=== PATIENT | male | born 1955 | race Caucasian/White ===

== ENCOUNTER 2018-02-05 16:30 | Emergency (ER) | payer SELFPAY ==
[2018-02-05 16:31] VITALS: BP 155/102; PULSE 61; RESP 16; TEMP 36.6; O2SAT 98; BMI 32.5
--- NOTE | 2018-02-05 16:52 | US_ITS ---
STUDY: ABDOMINAL ULTRASOUND - RIGHT UPPER QUADRANT REASON FOR VISIT: Male, 62 years old. Right upper quadrant pain TECHNIQUE: Ultrasound evaluation of the right upper quadrant was performed with real-time and static luis-scale imaging. TECHNICAL QUALITY: Adequate. COMPARISON: None. FINDINGS: Liver: The liver measures 18.3 cm. There is increased echogenicity consistent with fatty infiltration. The bile ducts are within normal limits. There is hepatic color flow. The direction of portal flow is hepatopetal. There is no demonstrated mass lesion. Gallbladder: Normal distended gallbladder. The gallbladder wall measures 2 mm. There is a positive sonographic Blankenship's sign. There is no pericholecystic fluid. There are no gallstones. Common Bile Duct (C.B.D.): The common bile duct measures 4.5 mm. Pancreas: There is nonvisualization of the pancreas. Right Kidney: Normal size of the right kidney. The right kidney measures 11.0 x 4.9 x 5.1 cm. Normal renal cortex. The right cortex measures 1.3 cm. There is no demonstrated renal mass or cyst. There is no right hydronephrosis. US/Gallbladder IMPRESSION: Fatty liver. Nondistended gallbladder without wall thickening, sludge or stones. Nondistended common bile duct. There is tenderness over the area of the gallbladder. Nonvisualized pancreas. Normal right kidney. Electronically Signed: Cinda Saavedra MD at 18:43 EDT , Service support ,
--- NOTE | 2018-02-05 16:52 | ED.VISSUMM ---
- ER Visit Summary Date of Service: 02/05/18 Chief Complaint: Abdominal pain History of Present Illness: The patient is a 62 M presenting with right upper quadrant abdominal pain ?10 days. Patient states the pain has been intermittent. He states it is occasionally improved with food. It is worsened with change in position. He had subjective fever. He has had nausea with no vomiting. He has had intermittent diarrhea and constipation. He went to urgent care 4 days ago and was given a prescription for Cipro. He states he was told he may have an infection of his gallbladder. He does not have a primary care physician. Physical Examination: Vitals are stable. Patient is afebrile. Alert no acute distress. HEENT exam is unremarkable. Neck is supple. Lungs are clear and equal bilaterally. Heart is regular rate and rhythm. Abdomen is soft right upper quadrant tenderness, no rebound Extremities are unremarkable. Skin is warm and dry. No focal neurologic deficit. Remainder of exam is unremarkable. Emergency Department Course and Treatment: Patient is given IV fluids, morphine, Zofran. CBC, chemistries unremarkable. Liver lipase are normal. Patient is feeling improved following medications. Ultrasound shows nondistended gallbladder with no stones. Patient states his pain has returned. He is given a GI cocktail with some improvement. CT abdomen pelvis shows no acute process. He is given a prescription for Pepcid and advised follow-up with Dr. Hinojosa cloud solutions architect for GI. Advised to return to the ED for worsening complaints. Disposition: Discharge home Impression: Abdominal pain This note was generated with [employer] dictation software. It may contain incorrect words, spelling, and punctuation that were not noted in review of the chart prior to signing ED Disposition - Plan for ED Patient: Chief Complaint: Abd Pain Referrals: NOT,DEFINED [NON-STAFF] -
[2018-02-05] MEDS: Ondansetron 4 MG/2 ML Vial IV (17:02)
[2018-02-05 17:13] LABS: Absolute Lymphocyte Count 1.44 X10^3/ul (0.83-4.51); Basophil# 0.02 X10^3/uL; Basophil% 0.3 % (0-1); Eosinophil# 0.27 X10^3/uL; Eosinophils% 3.6 % (0-5); Hematocrit 49.7 % (40-54); Hemoglobin 16.7 g/dl (13.0-16.5); Lymphocyte # 1.44 X10^3/ul (4.0); Lymphocyte % 19.3 % (19-41); Mean Corp Hgb Conc 33.6 g/gl (32-36); Mean Corpuscular Hgb 28.8 pg (27.0-32.0); Mean Corpuscular Volume 85.7 fL (80-94); Mean Platelet Vol. 9.6 fl (6.2-12.0); Monocyte# 0.73 X10^3/uL; Monocyte% 9.8 % (0-10); Neutrophil % 66.7 % (47-70); Platelet Count 195 K/mm3 (150-450); RBC Distribution Width CV 15.2 % (11.6-14.6); RBC Distribution Width SD 47.3 fl (35.1-43.9); White Blood Count 7.5 K/mm3 (4.4-11.0)
[2018-02-05 17:14] LABS: POSITIVE COUNT NO; POSITIVE DIFFERENTIAL NO; POSITIVE MORPHOLOGY NO
[2018-02-05 17:25] LABS: AST(SGOT) 31 U/L (15-37); Alanine Aminotransfer ALT/SGPT 41 U/L (16-61); Albumin, Serum 3.5 g/dL (3.2-5.0); Alkaline Phosphatase 54 U/L (45-117); Anion Gap 7 (5-15); BUN 23 mg/dL (7-18); BUN/Creat Ratio 20.5 RATIO (10-20); Bilirubin, Direct 0.12 mg/dL (0.00-0.30); Calcium,Total 8.7 mg/dL (8.5-10.1); Chloride 106 mmol/L (98-107); Creatinine, Serum 1.12 mg/dL (0.70-1.30); EST Glomerular Filtration Rate 70 mL/min (>60); Est Glom Filt Rate - Afr Amer 85 mL/min (>60); Estimated Creatinine Clearance 55.79 ml/min; Globulin 3.9 g/dL (2.2-4.2); Glucose 87 mg/dL (74-106); Lipase 299 U/L (73-393); Potassium 3.9 mmol/L (3.5-5.1); Protein, Total 7.4 g/dL (6.4-8.2); Sodium Level 140 mmol/L (136-145)
--- NOTE | 2018-02-05 18:55 | CT_ITS ---
STUDY: CT ABDOMEN AND PELVIS WITH CONTRAST REASON FOR EXAM: Male, 62 years old. Right upper quadrant pain and nausea for one week. RADIATION DOSAGE (If Supplied By Facility): CTDIvol = ( 25.19 ) mGy, DLP = ( 1054.89 ) mGycm TECHNIQUE: Transaxial images were obtained from the dome of the diaphragm to the symphysis pubis without oral contrast. 100 ml of Isovue 370 contrast was administered. Sagittal and coronal images were reconstructed. Individualized dose optimization techniques were used for this CT. COMPARISON: Right upper quadrant ultrasound of February 05, 2018 FINDINGS: The visualized lung bases are unremarkable. The visualized portions of the heart are within normal limits. Normal liver. Normal gallbladder and extrahepatic biliary system. Normal spleen. Normal pancreas. Normal bilateral adrenal glands. 2 mm nonobstructing stone in the lower pole of the right kidney without hydronephrosis or ureteral stones. Normal left kidney. Normal visualized stomach. Normal small intestine. Normal colon. There is non-visualization of the appendix. Mild plaque and tortuosity of the thoracic aorta and iliac vessels. Normal inferior vena cava. Normal retroperitoneum. Normal urinary bladder. Mild generalized prostate enlargement. Minimal fatty umbilical hernia. Bilateral fatty inguinal hernias. There are diffuse degenerative changes of the visualized lumbar spine. CT/Abdomen/Pelvis W IV Cont ONLY IMPRESSION: 2 mm nonobstructing stone in the lower pole of the right kidney without hydronephrosis, ureteral or bladder stones. Normal left kidney without hydronephrosis or stones. Unremarkable liver, gallbladder, common bile duct, pancreas and spleen. No acute bowel related findings. Negative for evidence of bowel obstruction, bowel perforation or inflammatory bowel changes. The appendix is not identified. Mild prostate enlargement. Minimal fatty umbilical hernia. Moderate bilateral fatty inguinal hernias. Electronically Signed: Cinda Saavedra MD at 20:03 EDT , Service support ,
[2018-02-05 19:08] VITALS: PULSE 58; RESP 18
--- NOTE | 2018-02-05 21:00 | ED.DEP ---
ED Disposition - Plan for ED Patient: Chief Complaint: Abd Pain Instructions: ED Abdominal Pain Unkn Cause Prescriptions: Famotidine [Pepcid] 20 mg PO BID #28 tablet Referrals: NOT,DEFINED [NON-STAFF] - Mervin Hayward DO [STAFF PHYSICIAN] - Tay Hinojosa MD [STAFF PHYSICIAN] -
[2018-02-05 21:09] VITALS: BP 150/89; PULSE 80; RESP 14; O2SAT 99
== END 2018-02-05 21:10 | disposition home or self-care (01) ==
LOC: ED 17:43
PROVIDERS: Emergency Provider Emergency Medicine
DX: R10.11 Right upper quadrant pain (principal); R11.0 Nausea; I10 Essential (primary) hypertension
CPT/HCPCS: 74177; 76705; 80048; 80076; 83690; 85025; 96361; 96374; 96375; 99283; J7030; J7040; Q9967; A4216; J2405

== ENCOUNTER 2018-02-11 20:30 | Observation (INO) | payer SELFPAY ==
[2018-02-11 20:31] VITALS: BP 133/102; PULSE 84; RESP 16; TEMP 37.3; O2SAT 98; BMI 33.5
--- NOTE | 2018-02-11 21:13 | US_ITS ---
STUDY: VENOUS DOPPLER ULTRASOUND - BILATERAL LOWER EXTREMITIES REASON FOR EXAM: Male, 62 years old. Pain and swelling TECHNIQUE: Ultrasound evaluation of the deep vein system to include clifford-scale imaging and compression was performed. Clifford-scale imaging and Doppler sonographic evaluation, including duplex spectral analysis and qualitative color flow sonography, was performed. COMPARISON: None. FINDINGS: RIGHT LEG Common Femoral Vein: Normal compression, spontaneity and augmentation. Normal color Doppler. Common Femoral Vein/Greater Saphenous Junction: Normal compression, spontaneity and augmentation. Normal color Doppler. Deep Femoral Vein: Normal compression, spontaneity and augmentation. Normal color Doppler. Superficial Femoral Proximal: Occlusive thrombus Superficial Femoral Middle: Occlusive thrombus Superficial Femoral Distal: Occlusion thrombus Popliteal Vein: Occlusive thrombus Posterior Tibial Vein: Occlusive thrombus Peroneal Vein: Occlusive thrombus The visualized soft tissues are unremarkable. LEFT LEG Common Femoral Vein: Normal compression, spontaneity and augmentation. Normal color Doppler. Common Femoral Vein/Greater Saphenous Junction: Normal compression, spontaneity and augmentation. Normal color Doppler. Deep Femoral Vein: Normal compression, spontaneity and augmentation. Normal color Doppler. Superficial Femoral Proximal: Normal compression, spontaneity and augmentation. Normal color Doppler. Superficial Femoral Middle: Normal compression, spontaneity and augmentation. Normal color Doppler. Superficial Femoral Distal: Normal compression, spontaneity and augmentation. Normal color Doppler. Popliteal Vein: Normal compression, spontaneity and augmentation. Normal color Doppler. Posterior Tibial Vein: Normal compression, spontaneity and augmentation. Normal color Doppler. Peroneal Vein: Normal compression, spontaneity and augmentation. Normal color Doppler. The visualized soft tissues are unremarkable. US/Venous Duplex Imag/Harris Extrem IMPRESSION: Occlusive thrombus in the right femoral vein, popliteal vein, posterior tibial vein and peroneal vein. No evidence of deep venous thrombosis in the left lower extremity. N.B. : The above information has been verbally conveyed by Nilo Laboy to Dr. Shad Schmidt, Referring Physician, on 02/11/2018 22:05:39 (ET). Electronically Signed: Nilo Laboy, at 22:04 EDT Tel , Service support , N.B. : The above information has been verbally conveyed by Nilo Laboy to Dr. Shad Schmidt, Referring Physician, on 02/11/2018 22:05:39 (ET).
[2018-02-11 21:22] LABS: Absolute Lymphocyte Count 1.17 X10^3/ul (0.83-4.51); Absolute Neutrophil Count 4.4 X10^3/uL (2.0-7.7); Basophil# 0.02 X10^3/uL; Basophil% 0.3 % (0-1); Eosinophil# 0.33 X10^3/uL; Eosinophils% 4.8 % (0-5); Hematocrit 49.2 % (40-54); Hemoglobin 16.7 g/dl (13.0-16.5); Lymphocyte # 1.17 X10^3/ul (4.0); Lymphocyte % 16.9 % (19-41); Mean Corp Hgb Conc 33.9 g/gl (32-36); Mean Corpuscular Hgb 28.7 pg (27.0-32.0); Mean Corpuscular Volume 84.7 fL (80-94); Mean Platelet Vol. 9.9 fl (6.2-12.0); Monocyte# 0.99 X10^3/uL; Monocyte% 14.3 % (0-10); Neutrophil # 4.41 X10^3/uL (2.7-7.7); Neutrophil % 63.6 % (47-70); Platelet Count 169 K/mm3 (150-450); Red Blood Count 5.81 M/mm3 (4.6-6.2); White Blood Count 6.9 K/mm3 (4.4-11.0)
[2018-02-11 21:23] LABS: POSITIVE COUNT NO; POSITIVE DIFFERENTIAL NO; POSITIVE MORPHOLOGY NO
[2018-02-11 21:28] LABS: Prothrombin Time (Protime)PT. 13.6 SECONDS (11.7-14.9)
[2018-02-11 21:35] LABS: Anion Gap 7 (5-15); BUN 27 mg/dL (7-18); Calcium,Total 8.4 mg/dL (8.5-10.1); Chloride 103 mmol/L (98-107); Creatinine, Serum 1.23 mg/dL (0.70-1.30); EST Glomerular Filtration Rate 63 mL/min (>60); Est Glom Filt Rate - Afr Amer 76 mL/min (>60); Glucose 105 mg/dL (74-106); Potassium 3.6 mmol/L (3.5-5.1); Sodium Level 137 mmol/L (136-145)
--- NOTE | 2018-02-11 21:53 | CT_ITS ---
STUDY: CTA CHEST REASON FOR EXAM: Male, 62 years old. Chest pain and DVT RADIATION DOSAGE (If Supplied By Facility): CTDIvol = ( 17.94 ) mGy, DLP = ( 659.75 ) mGycm TECHNIQUE: The examination was performed with the intravenous administration of 100 ml of Isovue 370 contrast material. Post-processing of the angiographic images was performed, with multiplanar reformation and 3D reconstruction. Individualized dose optimization techniques were used for this CT. COMPARISON: None. FINDINGS: There is intraluminal thrombus seen within the distal right pulmonary artery extending into the descending interlobar branch and segmental branches to the right lower lobe. There is also intraluminal clot seen within the proximal branches to the right upper lobe. . There is also clot seen within the subsegmental vessels to the left lower lobe There are atherosclerotic changes of the aorta and aneurysmal dilatation of the ascending aorta measuring approximately 4.8 x 4.5 cm. There is no demonstrated aortic dissection. Heart is normal size although there is mild coronary artery calcification. Normal mediastinum. Normal hilar regions. Normal visualized trachea and bronchi. The lungs are well expanded. There is mild interstitial and emphysematous change. There is no focal infiltrate or pulmonary nodule. Normal pleura. Normal chest wall structures. There appear to be sclerotic changes within the cervical spine of uncertain etiology.. Blastic metastasis cannot be excluded. Recommend clinical correlation and follow-up Dorsal spine demonstrates moderate spondylosis. Small hiatal hernia is demonstrated. Normal visualized upper abdomen. CT/CTA Chest W/WO Contrast IMPRESSION: Pulmonary emboli to the right upper and bilateral lower lobes.. Ascending aortic aneurysm measuring approximately 4.8 x 4.5 cm without evidence for dissection Other findings as above N.B. : The above information has been verbally conveyed by Bharat Metzger MD to Shad Schmidt , Referring Physician, on 02/11/2018 22:52:57 (ET). Electronically Signed: Bharat Metzger MD at 22:50 EDT , Service support , N.B. : The above information has been verbally conveyed by Bharat Metzger MD to Shad Schmidt , Referring Physician, on 02/11/2018 22:52:57 (ET).
[2018-02-11] MEDS: HEPARIN/D5w 25,000 UNITS 25,000 UNITS/250 ML IV.SOLN. 10 UNITS IV (22:54)
--- NOTE | 2018-02-11 23:25 | ED.VISSUMM ---
- ER Visit Summary Date of Service: 02/11/18 Chief Complaint: Right leg pain History of Present Illness: The patient is a 62 M presenting for evaluation secondary to right leg pain. Patient states that over the course last 5 days he has noticed pain and swelling in his right leg. Patient states it started in his calf, now is associated with some redness of the calf and goes all the way up into his thigh. Worse with palpation and movement no injury no fevers. Patient denies any chest pain or shortness of breath but does state that he has some right upper quadrant abdominal pain associated with this. Patient states that about a week ago he was in the emergency department was evaluated for this with lab work and an ultrasound that was found to be negative and he was discharged. Patient denies any hemoptysis. Denies any recent travel surgery or history of cancer. Denies any history DVT or PE. Physical Examination: Vital signs within normal limits. Well-nourished male no acute distress. Heart regular rate and rhythm no murmurs, normal S1-S2. Lungs sounds clear. Abdomen tender in the right upper quadrant negative Blankenship sign no guarding or rebound. Lower extremity exam shows tenderness to palpation and erythema of the lower leg up to the level of the knee. There are some scattered petechia over the patient's calf, 2+ DP and PT pulses that are bilaterally symmetric. Redness does not extend up above the knee, compartments are soft throughout with normal range of motion. Patient is able to weight-bear easily. Test Results: CBC chemistry coags found to be unremarkable. Ultrasound shows extensive DVT of the right leg. CT angiogram of the chest shows bilateral PEs. Emergency Department Course and Treatment: Patient presented for evaluation secondary to leg pain. Patient was recently emergency department and had reproducible upper quadrant pain and had a negative gallbladder workup. Patient's workup ended up showing that he had extensive DVT as well as PE, his pain likely is secondary to his pulmonary emboli. Given the extensive nature of the patient's clot burden I believe he requires admission. Patient will be admitted under the hospitalist. Disposition: Admission Impression: 1. Extensive right-sided DVT 2. Bilateral pulmonary emboli This note was generated with [employer] software. It may contain incorrect words, spelling, and punctuation that were not noted in review of the chart prior to signing ED Disposition - Plan for ED Patient: Chief Complaint: Lower Extremity Injury Referrals: Care Physician,No Primary [Primary Care Provider] -
--- NOTE | 2018-02-11 23:30 | ED.DCSUM_ITS ---
- ER Visit Summary Date of Service: 02/11/18 Chief Complaint: Right leg pain History of Present Illness: The patient is a 62 M presenting for evaluation secondary to right leg pain. Patient states that over the course last 5 days he has noticed pain and swelling in his right leg. Patient states it started in his calf, now is associated with some redness of the calf and goes all the way up into his thigh. Worse with palpation and movement no injury no fevers. Patient denies any chest pain or shortness of breath but does state that he has some right upper quadrant abdominal pain associated with this. Patient states that about a week ago he was in the emergency department was evaluated for this with lab work and an ultrasound that was found to be negative and he was discharged. Patient denies any hemoptysis. Denies any recent travel surgery or history of cancer. Denies any history DVT or PE. Physical Examination: Vital signs within normal limits. Well-nourished male no acute distress. Heart regular rate and rhythm no murmurs, normal S1-S2. Lungs sounds clear. Abdomen tender in the right upper quadrant negative Blankenship sign no guarding or rebound. Lower extremity exam shows tenderness to palpation and erythema of the lower leg up to the level of the knee. There are some scattered petechia over the patient's calf, 2+ DP and PT pulses that are bilaterally symmetric. Redness does not extend up above the knee, compartments are soft throughout with normal range of motion. Patient is able to weight- bear easily. Test Results: CBC chemistry coags found to be unremarkable. Ultrasound shows extensive DVT of the right leg. CT angiogram of the chest shows bilateral PEs. Emergency Department Course and Treatment: Patient presented for evaluation secondary to leg pain. Patient was recently emergency department and had reproducible upper quadrant pain and had a negative gallbladder workup. Patient 's workup ended up showing that he had extensive DVT as well as PE, his pain likely is secondary to his pulmonary emboli. Given the extensive nature of the patient's clot burden I believe he requires admission. Patient will be admitted under the hospitalist. Disposition: Admission Impression: 1. Extensive right-sided DVT 2. Bilateral pulmonary emboli This note was generated with [employer] software. It may contain incorrect words, spelling, and punctuation that were not noted in review of the chart prior to signing ED Disposition - Plan for ED Patient: Chief Complaint: Lower Extremity Injury Referrals: Care Physician,No Primary [Primary Care Provider] -
[2018-02-11 23:34] VITALS: BP 130/91; PULSE 91; RESP 18; O2SAT 94
[2018-02-11 23:36] VITALS: BP 130/91; PULSE 91; RESP 18; O2SAT 94
[2018-02-11] MEDS: Rivaroxaban 20 MG Tablet PO (23:56)
[2018-02-12] VITALS (9 sets, daily range): BP systolic 114–118; BP diastolic 78–85; PULSE 61–70; RESP 16–18; TEMP 36.9–37; O2SAT 94–96; BMI 33.5; BMI 34.4
--- NOTE | 2018-02-12 00:06 | PCM.HP.STD ---
Problem List (1) Pulmonary embolism Status: Acute Qualifiers: Pulmonary embolism type: other Chronicity: acute Acute cor pulmonale presence: without acute cor pulmonale Qualified Code(s): I26.99 - Other pulmonary embolism without acute cor pulmonale (2) DVT (deep venous thrombosis) Status: Acute Qualifiers: DVT location: lower extremity Affected thrombotic vein of extremity: popliteal Chronicity: acute Laterality: right Qualified Code(s): I82.431 - Acute embolism and thrombosis of right popliteal vein (3) Hypertension Status: Chronic Qualifiers: Hypertension type: essential hypertension Qualified Code(s): I10 - Essential (primary) hypertension History of Present Illness Date of Admission: 02/12/18 Chief Complaint: chest pain The patient is a 62 year old M who has been having some right upper quadrant abdominal pain. Was seen on the and underwent a workup which was unremarkable. Pain is persisted and patient presents to the emergency room. She was also noted swelling in his right lower extremity. Patient had a duplex that showed an extensive right lower extremity DVT. With that and with his pain, patient underwent a CT angiogram that showed bilateral pulmonary embolisms. Patient was started on heparin drip despite being hemodynamically stable. Patient states that 3 weeks ago he flew out to [place] and was not feeling well and was never on bed rest but just was not feeling well for the past few weeks. Patient also does receive Depo ejections of testosterone every 6 months. His last injection was 3 months ago. patient is a lifelong non-smoker. [] Past Medical History Past Medical History (Chronic Problems): Chronic Problems Hypertension (Chronic) Allergies No Known Allergies Allergy (Verified 02/11/18 20:30) Home Medications: Ambulatory Orders Medication Instructions Recorded Nebivolol HCl [Bystolic (Beta 20 mg PO DAILY 02/05/18 Bri)] Rivaroxaban [Xarelto] 15 mg PO BID #19 tablet 02/12/18 Rivaroxaban [Xarelto] 20 mg PO DAILY #30 tablet 02/12/18 Surgical History: arthroscopy, knee Psychiatric History: No pertinent psych hx Lives: Spouse/ Significant Other Smoking Status: Never smoker Tobacco Use: Non-smoker Alcohol: None Drugs: None - *Family History Maternal History Items: - - no VTE Review of Systems Constitutional: Denies: Chills, Fever, Weight Change Eyes: Denies: Blurred vision, Double vision HEENT: Denies: Head Aches, Sinus Congestion, Sinus Drainage Cardiovascular: Reports: Chest Pain, Edema - RLE. Denies: Palpitations Respiratory: Denies: Cough, Shortness of breath at rest, Sputum production Gastrointestinal: Reports: Abdominal Pain. Denies: Nausea, Vomiting Genitourinary: Denies: Dysuria Musculoskeletal: Denies: Arm Pain, Joint Pain, Joint Tenderness Skin: Denies: Dryness, Jaundice Neurological: Denies: Numbness, Tingling, Focal weakness Psychiatric: Denies: Anxiety, Depression Endocrine: Denies: Change in Body Habitus, Heat/ Cold Intolerance Hematologic/ Lymphatic: Denies: Easy Bruising, Easy Bleeding VTE Information - Inpt Only VTE Present on Admission: Yes Patient Problems: Active and Suspected Problems Pulmonary embolism (Acute) DVT (deep venous thrombosis) (Acute) - Physical Exam General: Alert, Cooperative, No apparent distress HEENT: Atraumatic, Normocephalic Neck: No Nodes, Thyroid Normal Size and Texture Lungs: Clear to auscultation, Normal air movement, No rhonchi, No wheeze Cardiovascular: Regular rate, Regular Rhythm, Normal S1, Normal S2, No murmurs Abdomen: Bowel Sounds Present, Soft, Non Tender, Non-Distended, No Hepato-splenomegaly Extremities: Edema, - - right calf tenderness Skin: No rashes, No breakdown Musculoskeletal: No Tenderness to Palpation of Joints or Extremities, No Muscle Wasting Neurological: Neuro grossly intact, Sensory exam intact to light touch and pain, Coordination normal Psych/Mental Status: Normal Affect, Appropriate Vital Signs Temp Pulse Resp BP Pulse Ox 37.3 C 91 18 130/91 H 94 02/11/18 20:31 02/11/18 23:36 02/11/18 23:36 02/11/18 23:36 02/11/18 23:36 Oxygen Delivery Method Room Air Weight: 88.451 kg Body Mass Index (BMI) 33.5 Laboratory Tests Past 24 Hrs 02/11/18 02/11/18 02/11/18 21:07 21:07 21:07 WBC 6.9 RBC 5.81 Hgb 16.7 H Hct 49.2 MCV 84.7 MCH 28.7 MCHC 33.9 RDW 15.0 H RDW Differential 46.0 H Plt Count 169 MPV 9.9 Immature Gran % (Auto) 0.100 Neut % (Auto) 63.6 Lymph % (Auto) 16.9 L Jewell % (Auto) 14.3 H Eos % (Auto) 4.8 Baso % (Auto) 0.3 Absolute Neuts (auto) 4.4 Absolute Lymphs (auto) 1.17 Total Counted Not Reportable PT 13.6 INR 1.0 APTT 31.0 Sodium 137 Potassium 3.6 Chloride 103 Carbon Dioxide 27.0 Anion Gap 7 BUN 27 H Creatinine 1.23 Estim Creat Clear Calc 50.80 Est GFR (MDRD) Af Amer 76 Est GFR (MDRD) Non-Af 63 BUN/Creatinine Ratio 22.0 H Glucose 105 Calcium 8.4 L Clinical Impression(s) from Imaging Studies Venous Duplex 02/11/18 21:13 IMPRESSION: Occlusive thrombus in the right femoral vein, popliteal vein, posterior tibial vein and peroneal vein. No evidence of deep venous thrombosis in the left lower extremity. N.B. : The above information has been verbally conveyed by Nilo Laboy to Dr. Shad Schmidt, Referring Physician, on 02/11/2018 22:05:39 (ET). Electronically Signed: Nilo Laboy, at 22:04 EDT Tel , Service support , N.B. : The above information has been verbally conveyed by Nilo Laboy to Dr. Shad Schmidt, Referring Physician, on 02/11/2018 22:05:39 (ET). Chest CTA 02/11/18 21:53 IMPRESSION: Pulmonary emboli to the right upper and bilateral lower lobes.. Ascending aortic aneurysm measuring approximately 4.8 x 4.5 cm without evidence for dissection Other findings as above N.B. : The above information has been verbally conveyed by Bharat Metzger MD to Shad Schmidt , Referring Physician, on 02/11/2018 22:52:57 (ET). Electronically Signed: Bharat Metzger MD at 22:50 EDT , Service support , N.B. : The above information has been verbally conveyed by Bharat Metzger MD to Shda Schmidt , Referring Physician, on 02/11/2018 22:52:57 (ET). Assessment/Plan Active and Suspected Problems Pulmonary embolism (Acute) DVT (deep venous thrombosis) (Acute) 1. Acute pulmonary emboli I feel that this is likely due to the fact the patient is on testosterone but also related with some relative immobility due to recent illness patient has been having plus also may be his semi-remote travel. I have advised the patient not receive any further testosterone injections. Patient does receive a Depo shots every 6 months and his last shot was 3 week months ago. I do not feel the patient needs heparin as he is currently hemodynamically stable. I discussed with the patient about the options of novel anticoagulants versus Coumadin. I recommended the novel anticoagulants and also stated that the chest guidelines have also recommended that as well. I did discuss risk and benefits associated with all the incisions. Patient has agreed to proceed with novel agents and I will utilize Xarelto. Patient unfortunately does not have insurance so patient will be admitted so that he can be assessed by case management to help arrange for medications for his Xarelto if possible. 2. Acute right lower extremity DVT As above. Patient was seen and examined on February 11. Code Visit OBSV E&M: [id number] Initial observation care L3 - billing for H+P is for 02/11/18
[2018-02-12] MEDS: HYDROcodone Bitartrate/Apap 5/325 Tablet PO (00:10)
--- NOTE | 2018-02-12 00:14 | HP.PCM_ITS ---
Problem List (1) Pulmonary embolism Status: Acute Qualifiers: Pulmonary embolism type: other Chronicity: acute Acute cor pulmonale presence: without acute cor pulmonale Qualified Code(s): I26.99 - Other pulmonary embolism without acute cor pulmonale (2) DVT (deep venous thrombosis) Status: Acute Qualifiers: DVT location: lower extremity Affected thrombotic vein of extremity: popliteal Chronicity: acute Laterality: right Qualified Code(s): I82.431 - Acute embolism and thrombosis of right popliteal vein (3) Hypertension Status: Chronic Qualifiers: Hypertension type: essential hypertension Qualified Code(s): I10 - Essential (primary) hypertension History of Present Illness Date of Admission: 02/12/18 Chief Complaint: chest pain The patient is a 62 year old M who has been having some right upper quadrant abdominal pain. Was seen on the and underwent a workup which was unremarkable. Pain is persisted and patient presents to the emergency room. She was also noted swelling in his right lower extremity. Patient had a duplex that showed an extensive right lower extremity DVT. With that and with his pain , patient underwent a CT angiogram that showed bilateral pulmonary embolisms. Patient was started on heparin drip despite being hemodynamically stable. Patient states that 3 weeks ago he flew out to [place] and was not feeling well and was never on bed rest but just was not feeling well for the past few weeks. Patient also does receive Depo ejections of testosterone every 6 months. His last injection was 3 months ago. patient is a lifelong non- smoker. [] Past Medical History Past Medical History (Chronic Problems): Chronic Problems Hypertension (Chronic) Allergies No Known Allergies Allergy (Verified 02/11/18 20:30) Home Medications: Ambulatory Orders Medication Instructions Recorded Nebivolol HCl [Bystolic (Beta 20 mg PO DAILY 02/05/18 Bri)] Rivaroxaban [Xarelto] 15 mg PO BID #19 tablet 02/12/18 Rivaroxaban [Xarelto] 20 mg PO DAILY #30 tablet 02/12/18 Surgical History: arthroscopy, knee Psychiatric History: No pertinent psych hx Lives: Spouse/ Significant Other Smoking Status: Never smoker Tobacco Use: Non-smoker Alcohol: None Drugs: None - *Family History Maternal History Items: - - no VTE Review of Systems Constitutional: Denies: Chills, Fever, Weight Change Eyes: Denies: Blurred vision, Double vision HEENT: Denies: Head Aches, Sinus Congestion, Sinus Drainage Cardiovascular: Reports: Chest Pain, Edema - RLE. Denies: Palpitations Respiratory: Denies: Cough, Shortness of breath at rest, Sputum production Gastrointestinal: Reports: Abdominal Pain. Denies: Nausea, Vomiting Genitourinary: Denies: Dysuria Musculoskeletal: Denies: Arm Pain, Joint Pain, Joint Tenderness Skin: Denies: Dryness, Jaundice Neurological: Denies: Numbness, Tingling, Focal weakness Psychiatric: Denies: Anxiety, Depression Endocrine: Denies: Change in Body Habitus, Heat/ Cold Intolerance Hematologic/ Lymphatic: Denies: Easy Bruising, Easy Bleeding VTE Information - Inpt Only VTE Present on Admission: Yes Patient Problems: Active and Suspected Problems Pulmonary embolism (Acute) DVT (deep venous thrombosis) (Acute) - Physical Exam General: Alert, Cooperative, No apparent distress HEENT: Atraumatic, Normocephalic Neck: No Nodes, Thyroid Normal Size and Texture Lungs: Clear to auscultation, Normal air movement, No rhonchi, No wheeze Cardiovascular: Regular rate, Regular Rhythm, Normal S1, Normal S2, No murmurs Abdomen: Bowel Sounds Present, Soft, Non Tender, Non-Distended, No Hepato- splenomegaly Extremities: Edema, - - right calf tenderness Skin: No rashes, No breakdown Musculoskeletal: No Tenderness to Palpation of Joints or Extremities, No Muscle Wasting Neurological: Neuro grossly intact, Sensory exam intact to light touch and pain , Coordination normal Psych/Mental Status: Normal Affect, Appropriate Vital Signs Temp Pulse Resp BP Pulse Ox 37.3 C 91 18 130/91 H 94 02/11/18 20:31 02/11/18 23:36 02/11/18 23:36 02/11/18 23:36 02/11/18 23:36 Oxygen Delivery Method Room Air Weight: 88.451 kg Body Mass Index (BMI) 33.5 Laboratory Tests Past 24 Hrs 02/11/18 02/11/18 02/11/18 21:07 21:07 21:07 WBC 6.9 RBC 5.81 Hgb 16.7 H Hct 49.2 MCV 84.7 MCH 28.7 MCHC 33.9 RDW 15.0 H RDW Differential 46.0 H Plt Count 169 MPV 9.9 Immature Gran % (Auto) 0.100 Neut % (Auto) 63.6 Lymph % (Auto) 16.9 L Edmunds % (Auto) 14.3 H Eos % (Auto) 4.8 Baso % (Auto) 0.3 Absolute Neuts (auto) 4.4 Absolute Lymphs (auto) 1.17 Total Counted Not Reportable PT 13.6 INR 1.0 APTT 31.0 Sodium 137 Potassium 3.6 Chloride 103 Carbon Dioxide 27.0 Anion Gap 7 BUN 27 H Creatinine 1.23 Estim Creat Clear Calc 50.80 Est GFR (MDRD) Af Amer 76 Est GFR (MDRD) Non-Af 63 BUN/Creatinine Ratio 22.0 H Glucose 105 Calcium 8.4 L Clinical Impression(s) from Imaging Studies Venous Duplex 02/11/18 21:13 IMPRESSION: Occlusive thrombus in the right femoral vein, popliteal vein, posterior tibial vein and peroneal vein. No evidence of deep venous thrombosis in the left lower extremity. N.B. : The above information has been verbally conveyed by Nilo Laboy to Dr. Shad Schmidt, Referring Physician, on 02/11/2018 22:05:39 (ET). Electronically Signed: Nilo Laboy, at 22:04 EDT Tel , Service support , N.B. : The above information has been verbally conveyed by Nilo Laboy to Dr. Shad Schmidt, Referring Physician, on 02/11/2018 22:05:39 (ET). Chest CTA 02/11/18 21:53 IMPRESSION: Pulmonary emboli to the right upper and bilateral lower lobes.. Ascending aortic aneurysm measuring approximately 4.8 x 4.5 cm without evidence for dissection Other findings as above N.B. : The above information has been verbally conveyed by Bharat Metzger MD to Shad Schmitd , Referring Physician, on 02/11/2018 22:52:57 (ET). Electronically Signed: Bharat Metzger MD at 22:50 EDT , Service support , N.B. : The above information has been verbally conveyed by Bharat Metzger MD to Shad Schmidt , Referring Physician, on 02/11/2018 22:52:57 (ET). Assessment/Plan Active and Suspected Problems Pulmonary embolism (Acute) DVT (deep venous thrombosis) (Acute) 1. Acute pulmonary emboli * I feel that this is likely due to the fact the patient is on testosterone but also related with some relative immobility due to recent illness patient has been having plus also may be his semi-remote travel. * I have advised the patient not receive any further testosterone injections. Patient does receive a Depo shots every 6 months and his last shot was 3 week months ago. * I do not feel the patient needs heparin as he is currently hemodynamically stable. I discussed with the patient about the options of novel anticoagulants versus Coumadin. I recommended the novel anticoagulants and also stated that the chest guidelines have also recommended that as well. I did discuss risk and benefits associated with all the incisions. Patient has agreed to proceed with novel agents and I will utilize Xarelto. Patient unfortunately does not have insurance so patient will be admitted so that he can be assessed by case management to help arrange for medications for his Xarelto if possible. 2. Acute right lower extremity DVT * As above. Patient was seen and examined on February 11. Code Visit OBSV E&M: [id number] Initial observation care L3 - billing for H+P is for 02/11/18
[2018-02-12] MEDS: Magnesium Hydroxide 30 ML UDC PO (01:51)
[2018-02-12] MEDS: Rivaroxaban 15 MG Tablet PO (07:59)
[2018-02-12] MEDS: Nebivolol HCl 10 MG Tablet 20 MG PO (09:57)
--- NOTE | 2018-02-12 10:24 | CASEMGMT ---
SOCIAL WORK: Referral received this morning from hammer heater due to self-pay status and need for Rx assistance information. Patient admitted with bilateral PE and will require Xarelto upon discharge. Met with patient and significant other, Melody, in his room; introduced self and SW role at [facility]. Patient confirmed that he does not have insurance and reports that he cannot afford to purchase any; he denies prior application for Medicaid however requests an application to determine if he qualifies for assistance. Patient also does not have a PCP. He reports re-locating to [facility] approximately one year ago. SW provided patient with a Xarelto 30 day free trial card with instructions for card activation. Confirmed that patient has computer access at home and advised to go to Xarelto website to download subsequent monthly co-pay savings card for subsequent fills. Also provided patient with contact information for [facility] and educated to their Financial Assistance Program; Financial Assistance application provided as well for [facility]. Medicaid application provided along with address for [facility] and their phone number. Resource listing, which includes health clinics and additional Rx assistance, provided for [facility] along with updated listing of Primary Care Physicians in the [place] area as per patient stated request. Encouraged patient to call hospital financial services on Wednesday to inquire about HCAP application. Advised of contact information for Patient Navigator in event that patient would like to explore self-pay insurance options. Patient denied any further needs, concerns or questions at this time. JERARDO BRYAN,TIMOTHY
--- NOTE | 2018-02-12 12:29 | PCM.DC ---
- Discharge Diagnoses Current Active Problems: Current Active and Chronic Problems Pulmonary embolism (Acute) DVT (deep venous thrombosis) (Acute) Hypertension (Chronic) You will use the following diet at home:: Cardiac Your food should be the consistency of: Regular Your liquids should be the consistency of: Regular/Thin Discharge Activity: Return to Normal Activity Allergies/Adverse Reactions: Allergies No Known Allergies Allergy (Verified 02/11/18 20:30) Medications to take at Discharge Nebivolol HCl [Bystolic (Beta Bri)] 20 mg PO DAILY 02/05/18 Rivaroxaban [Xarelto] 15 mg PO BID #40 tab 02/12/18 Rivaroxaban [Xarelto] 20 mg PO DAILY #30 tab 02/12/18 Triamterene 75MG/Hctz 50MG [Maxzide] 1 tablet PO DAILY 02/12/18 The following prescriptions were given: Rivaroxaban [Xarelto] 15 mg PO BID #40 tab Rivaroxaban [Xarelto] 20 mg PO DAILY #30 tab Please follow up with your Primary Care Physician in: 1 weeks Proposed Discharge Date: 02/12/18
--- NOTE | 2018-02-12 12:31 | PCM.DC.SUM ---
Discharge Date and Diagnosis - Problem List Patient Problems: Active and Suspected Problems Pulmonary embolism (Acute) DVT (deep venous thrombosis) (Acute) Date of Admission: 02/12/18 Date of Discharge: 02/12/18 - Primary Discharge Diagnosis Active and Suspected Problems bilateral Pulmonary emboli (Acute) DVT (deep venous thrombosis) (Acute) Ascending aortic aneurysm HTN - Secondary Discharge Diagnosis Chronic Problems Hypertension (Chronic) Hospital Course and Treatment Imaging Results: US/Venous Duplex Imag/Harris Extrem IMPRESSION: Occlusive thrombus in the right femoral vein, popliteal vein, posterior tibial vein and peroneal vein. No evidence of deep venous thrombosis in the left lower extremity. CT/CTA Chest W/WO Contrast IMPRESSION: Pulmonary emboli to the right upper and bilateral lower lobes.. Ascending aortic aneurysm measuring approximately 4.8 x 4.5 cm without evidence for dissection Other findings as above Operations: None Procedures: None Summary of Care Provided: Physical exam on day of discharge: General: Resting comfortably NAD Psych: A/Ox3 normal affect HEENT: PEARRLA AT NC Neck: Supple NT CV: RRR no m/t/r/g/h Resp: CTA Abd: [id number] Soft NT no guarding or rigidity Ext: DP2+= no edema Skin: W/D normal turgor Lymph/Heme: No active bleeding or adenopathy Neuro: CN2-12 intact Hospital course: The patient is a 62 year old M who presented to the ER with right leg pain who had presented to the ER a week prior with subcostal chest pain. He was found to have DVTs and a CTA of the chest revealed PEs in the right upper and bilateral lower lobes. They also showed an ascending aortic aneurysm measuring 4.8x4.5 cm. The patient reported that he knew of the aneurysm and that 4 years ago it measured 4.7 cm. He has not had any follow up care since then stating he was dropped from his insurance. He has however been receiving tesosterone injections which we advised him to discontinue as they can increase your clotting risk. He has no personal or family hx of blood clots. He was placed on xarelto. He was given a list of PCPs in the area to follow up with. He remained without SOB or CP at rest or with exertion. He was advised to follow up with a PCP for this and the aortic aneurysm. We advised him to have an outpatient Echocardiogram. He was discharged home in stable condition. This patient was seen by Calderon Field PA-C under the supervision of Doctor Rodrigo. [] Discharge Diet: Low fat/ Low Cholesterol, 2000 mg Sodium Diet Discharge Activity: Return to Normal Activity Home Medications: Medications to take at Discharge Nebivolol HCl [Bystolic (Beta Bri)] 20 mg PO DAILY 02/05/18 Rivaroxaban [Xarelto] 15 mg PO BID #40 tab 02/12/18 Rivaroxaban [Xarelto] 20 mg PO DAILY #30 tab 02/12/18 Triamterene 75MG/Hctz 50MG [Maxzide] 1 tablet PO DAILY 02/12/18 Following Prescrptions Were Given to Patient: Rivaroxaban [Xarelto] 15 mg PO BID #40 tab Rivaroxaban [Xarelto] 20 mg PO DAILY #30 tab Primary Care Physician: Care Physician,No Primary [Primary Care Provider] - Please follow up with your Primary Care Physician in: 1 weeks Disposition: Home Minutes spent on discharge:: 35 Patient Condition:: Stable Medical Necessity - Tobacco Use Smoking Status: Never smoker Tobacco Use: Non-smoker Meaningful Use Info Meaningful Use Diagnoses (Choose all that apply): VTE - VTE Anticoag overlap given w/in hospital stay or rx'd at dc?: No Pt receive overlap for 5 days?: No Reason overlap not ordered, prescribed, or given for 5 days: Procedure Not Indicated
[2018-02-12] MEDS: oxyCODONE 5 MG Tablet PO (13:30)
== END 2018-02-12 14:40 | disposition home or self-care (01) ==
LOC: ED 21:11 → PCU 02-12 00:07
PROVIDERS: Emergency Provider Emergency Medicine; Visit Provider Internal Medicine
DX: I26.99 Other pulmonary embolism without acute cor pulmonale (principal); I82.401 Acute embolism and thrombosis of unspecified deep veins of right lower extremity; I10 Essential (primary) hypertension; I71.2 Thoracic aortic aneurysm, without rupture; Z79.899 Other long term (current) drug therapy
CPT/HCPCS: 71275; 80048; 85025; 85610; 85730; 93970; 96365; 96366; 96376; 99218; 99282; Q9967; A4216; G0378

== ENCOUNTER → 2018-02-18 14:55 | Outpatient (CLI) | payer SELFPAY ==
--- NOTE | 2018-02-18 14:58 | ECHOCS_ITS ---
Reason For Study: EMBOLI Procedure This was a 2D Doppler, Color Flow transthoracic echocardiogram. Exam performed in department. Left Ventricle Normal LV size. Left ventricular systolic function is normal. The estimated ejection fraction is 60 %. No evidence for diastolic dysfunction. No regional wall motion abnormalities noted. Right Ventricle Normal RV size. Normal systolic function. Atria Normal left atrium. Normal right atrium. Mitral Valve Normal mitral valve. Mild (1+) eccentric mitral valve insufficiency. Tricuspid Valve Normal tricuspid valve. Mild (1+) tricuspid valve insufficiency. Pulmonary artery systolic pressure is 30 mmHg. Aortic Valve Normal aortic valve. Trisinus/trileaflet aortic valve. Mild (1+) aortic valve insufficiency. Pulmonic Valve Normal pulmonic valve. Great Vessels Mild to moderately dilated aortic root. The pulmonary artery is normal size. Normal inferior vena cava. Pericardium/Pleural No pericardial effusion. MMode/2D Measurements & Calculations LVIDd: 4.4 cm IVSd: 1.4 cm Ao root diam: 3.4 cm LVIDs: 2.8 cm LVPWd: 0.99 cm RVDd: 3.6 cm FS: 34.9 % LAV(MOD-bp): 37.1 ml EDV(MOD-sp4): 107.8 ml SV(MOD-sp4): 70.8 ml LAV(MOD-bp) Indexed: 19.2 ml/m2 ESV(MOD-sp4): 37.0 ml LAV(MOD-sp2): 40.3 ml EF(MOD-sp4): 65.7 % LAV(MOD-sp4): 25.5 ml LA A4 area: 11.2 cm2 RA A4 area: 13.7 cm2 Time Measurements MV dec time: 0.24 sec Doppler Measurements & Calculations MV E max michael: 67.9 cm/sec Lat Peak E' Michael: 6.2 cm/sec Med Peak E' Michael: 5.4 cm/sec MV A max michael: 98.3 cm/sec E/E' lat: 10.9 E/E' med: 12.5 MV E/A: 0.69 Ao V2 max: 173.6 cm/sec AI max michael: 516.8 cm/sec LV V1 max: 118.0 cm/sec Ao max P.1 mmHg AI max P.8 mmHg LV V1 max P.6 mmHg AI dec slope: 122.5 cm/sec2 AI P1/2t: 1236 msec PA V2 max: 93.2 cm/sec TR max michael: 251.6 cm/sec TR max P.3 mmHg Interpretation Summary Normal LV size. Left ventricular systolic function is normal. The estimated ejection fraction is 60 %. No evidence for diastolic dysfunction. Mild (1+) eccentric mitral valve insufficiency. Pulmonary artery systolic pressure is 30 mmHg. Mild (1+) aortic valve insufficiency. Ordering Physician: Calderon Field Referring Physician: VALERIE ALVAREZ Performed By: Ayanna Garg RDCS
== END ==
PROVIDERS: Visit Provider Physician Assistant
DX: I74.9 Embolism and thrombosis of unspecified artery (principal)
CPT/HCPCS: 93306; C8929